=== PATIENT | male | born 1985 | race Caucasian/White ===

== ENCOUNTER 2021-06-14 11:26 | Inpatient (IN) | payer BC ==
--- NOTE | 2021-06-14 12:26 | ERPHSYRPT ---
- History of Present Illness Source: patient Exam Limitations: no limitations Patient Subjective Stated Complaint: spider bite to L forearm since night Triage Nursing Assessment: See skin assessment tab for abcess assessment. Otherwise, pt is A & OX3, answers questions approprately. VSS. Skin PWD. RR even, unlabored. Ambulated to room without difficulty. Resting comfortably in bed. Has blanket and call light. Physician History: 36 yo obese wm w L proximal-ventral forearm erythema/edema which pt states is due to a brown recluse spider that bit him while he was in bed on 06/12/21. He says that he has had some "numbness" and "burning" B hands/feet since the bite, along w a fever/headache. Timing/Duration: day(s) (2 days ago) Quality: burning Severity: moderate Location: other (L ventral-proximal forearm) Possible Causes: other (Brown Recluse spider) Modifying Factors: Improves With: antihistamine (Taking Benadryl) Allergies/Adverse Reactions: lisinopril Adverse Reaction (Intermediate, Verified 06/14/21 11:54) Cough Home Medications: Losartan Potassium 100 mg PO DAILY 06/14/21 [History] Metformin HCl 500 mg [Glucophage 500 MG] 500 mg PO DAILY 06/14/21 [History] PARoxetine HCL [Paroxetine HCl] 20 mg PO DAILY 06/14/21 [History] Simvastatin 10 mg PO DAILY 06/14/21 [History] hydroCHLOROthiazide [Hydrochlorothiazide] 50 mg PO DAILY 06/14/21 [History] Hx Tetanus, Diphtheria Vaccination/Date Given: No Hx Influenza Vaccination/Date Given: No Travel Risk - International Travel Have you traveled outside of the country in past 3 weeks: No - Coronavirus Screening Are you exhibiting any of the following symptoms?: No Close contact with a COVID-19 positive Pt in past 14-21 Days: No - Vaccine Status Have you recieved a Covid-19 vaccination: Yes 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 - Vaccination Dates Date of 2cond Vaccination (if applicable): unknown - Review of Systems Constitutional: No Symptoms, Fever, Chills Eyes: No Symptoms Ears, Nose, & Throat: No Symptoms Respiratory: No Symptoms Cardiac: No Symptoms Abdominal/Gastrointestinal: No Symptoms, Nausea Genitourinary Symptoms: No Symptoms Musculoskeletal: No Symptoms, Arthralgias Skin: No Symptoms, Rash Neurological: No Symptoms, Headache Psychological: No Symptoms Endocrine: No Symptoms Hematologic/Lymphatic: No Symptoms Immunological/Allergic: No Symptoms - Past Medical History Pertinent Past Medical History: Yes Neurological History: No Pertinent History Cardiac History: High Cholesterol, Hypertension Respiratory History: Sleep Apnea Musculoskeletal History: No Pertinent History GI Medical History: No Pertinent History History: No Pertinent History Psycho-Social History: Anxiety Male Reproductive Disorders: No Pertinent History Other Medical History: pre diabetic - Past Surgical History Past Surgical History: Yes Other Surgical History: radio frequency ablation of back - Social History Smoking Status: Former smoker Exposure to second hand smoke: No Drug Use: none Patient Lives Alone: No Significant Family History: no pertinent family hx - Nursing Vital Signs Nursing Vital Signs: Initial Vital Signs Temperature 98.5 F 06/14/21 11:37 Pulse Rate 96 H 06/14/21 11:37 Respiratory Rate 20 06/14/21 11:37 Blood Pressure 116/77 06/14/21 11:37 O2 Sat by Pulse Oximetry 97 06/14/21 11:37 Pain Scale Pain Intensity 3 Slightly tachypneic - Physical Exam General Appearance: no apparent distress Eye Exam: PERRL/EOMI, eyes nml inspection Ears, Nose, Throat Exam: normal ENT inspection, TMs normal, pharynx normal, m oist mucous membranes Neck Exam: normal inspection, non-tender, supple, full range of motion, No meningismus, No mass, No Brudzinski, No Kernig's, No carotid bruit Respiratory Exam: normal breath sounds, lungs clear, airway intact, No respiratory distress Cardiovascular Exam: regular rate/rhythm, normal heart sounds, normal peripheral pulses, capillary refill <2 sec, No murmur Gastrointestinal/Abdomen Exam: soft (Morbidly obese), normal bowel sounds, No tenderness Back Exam: normal inspection, normal range of motion, No CVA tenderness, No vertebral tenderness Extremity Exam: other (Erythema and mild edema L ventral-proximal forearm/No palpable abscess/mildly TTP/Good radial pulse, distal sensation, and capillary return) Neurologic Exam: alert, oriented x 3, cooperative, 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, normal mood/affect, nml cerebellar function, nml station & gait, sensation nml, No motor deficits, No sensory deficit Skin Exam: warm, dry Lymphatic Exam: No adenopathy SpO2 Interpretation: normal SpO2: 97 O2 Delivery: Room Air - Course Nursing assessment & vital signs reviewed: Yes Ordered Tests: Active Orders 24 hr Category Date Time Status IV Insertion STAT Care 06/14/21 11:50 Completed Heart-Healthy Diet Diet 06/14/21 Dinner Active BLOOD CULTURE Stat Lab 06/14/21 12:20 Received CBC W DIFF AM.LAB Lab 06/15/21 04:00 Ordered CBC W DIFF Stat Lab 06/14/21 11:50 Completed CMP AM.LAB Lab 06/15/21 04:00 Ordered CMP Stat Lab 06/14/21 12:15 Completed Lactic Acid AM.LAB Lab 06/15/21 04:00 Ordered Lactic Acid Stat Lab 06/14/21 11:50 Completed Transfer Order Routine Transfer 06/14/21 Completed Medication Summary Generic Name Dose Route Start Last Admin Trade Name Freq PRN Reason Stop Dose Admin Acetaminophen 500 mg 06/14/21 18:51 06/14/21 18:53 Acetaminophen 500 Mg Tablet PO 07/14/21 18:50 500 mg Q6H PRN PRN Administration HEADACHE Enoxaparin Sodium 40 mg 06/15/21 10:00 Enoxaparin Sodium 40 Mg/0.4 Ml Syringe SQ 07/15/21 09:59 DAILY YUAN Vancomycin HCl 1 gm in 200 mls @ 125 mls/hr 06/14/21 14:30 06/14/21 16:03 Vancomycin 1 Gram/200 Ml Bag IV 07/14/21 14:29 Infused Q12H YUAN Infusion Sodium Chloride 1,000 mls @ 100 mls/hr 06/14/21 14:30 06/14/21 18:01 Sodium Chloride 0.9% 1000 Ml IV 07/14/21 14:29 100 mls/hr .Q10H YUAN Administration Insulin Human Lispro 0 unit 06/14/21 14:28 Insulin Lispro 1 Unit SQ 07/14/21 14:27 UD PRN HYPERGLYCEMIA Ondansetron HCl 4 mg 06/14/21 15:56 06/14/21 18:01 Ondansetron Hcl 4 Mg/2 Ml Vial IV 07/14/21 15:55 4 mg Q6H PRN PRN Administration NAUSEA/VOMITING Ondansetron HCl 4 mg 06/14/21 21:05 06/14/21 21:11 Ondansetron Hcl 4 Mg/2 Ml Vial IV 06/14/21 21:06 4 mg ONCE ONE Administration Pantoprazole Sodium 40 mg 06/15/21 10:00 Pantoprazole 40 Mg Vial IV 07/15/21 09:59 Q24H10 YUAN Discontinued Medications Generic Name Dose Route Start Last Admin Trade Name Freq PRN Reason Stop Dose Admin Acetaminophen 1,000 mg 06/14/21 18:45 Acetaminophen 500 Mg Tablet PO 07/14/21 18:44 Q4H PRN PRN HEADACHE Ondansetron HCl Confirm 06/14/21 15:55 Ondansetron Hcl 4 Mg/2 Ml Vial Administered 06/14/21 15:56 Dose 4 mg .ROUTE .STK-MED ONE Ondansetron HCl 4 mg 06/14/21 15:55 06/14/21 15:57 Ondansetron Hcl 4 Mg/2 Ml Vial IV 06/14/21 15:56 4 mg STAT ONE Administration Lab/Rad Data: Laboratory Result Diagrams 06/14/21 11:50 06/14/21 12:15 Laboratory Results 06/14/21 06/14/21 06/14/21 Range/Units 14:45 12:15 11:50 WBC (4.0-10.5) K/mm3 RBC (4.1-5.6) M/mm3 Hgb (12.5-18.0) gm/dl Hct (42-50) % MCV (78-100) fl MCH (26-32) pg MCHC (32-36) g/dl RDW (11.5-14.0) % Plt Count (150-450) K/mm3 MPV (7.5-11.0) fl Gran % (36.0-66.0) % Eos # (Auto) (0-0.5) Absolute Lymphs (auto) (1.0-4.6) Absolute Monos (auto) (0.0-1.3) Lymphocytes % (24.0-44.0) % Monocytes % (0.0-12.0) % Eosinophils % (0.00-5.0) % Basophils % (0.0-0.4) % Absolute Granulocytes (1.4-6.9) Basophils # (0-0.4) Sodium 135 L (137-145) mmol/L Potassium 3.1 L (3.5-5.1) mmol/L Chloride 96 L (98-107) mmol/L Carbon Dioxide 29 (22-30) mmol/L Anion Gap 13.4 (5-15) MEQ/L BUN 14 (9-20) mg/dL Creatinine 1.36 H (0.66-1.25) mg/dL Estimated GFR > 60.0 ML/MIN Glucose 113 H (74-106) mg/dL Lactic Acid 1.6 (0.4-2.0) Calcium 9.1 (8.4-10.2) mg/dL Total Bilirubin 3.50 H (0.2-1.3) mg/dL AST 82 H (17-59) U/L ALT 81 H (0-50) U/L Alkaline Phosphatase 55 (38-126) U/L Serum Total Protein 7.5 (6.3-8.2) g/dL Albumin 4.0 (3.5-5.0) g/dL Influenza Type A Ag NEGATIVE (NEGATIVE) Influenza Type B Ag NEGATIVE (NEGATIVE) RSV (PCR) NEGATIVE (Negative) SARS-CoV-2 (PCR) NEGATIVE (NEGATIVE) Slides for Path Review 06/14/21 Range/Units 11:50 WBC 14.1 H (4.0-10.5) K/mm3 RBC 5.03 (4.1-5.6) M/mm3 Hgb 14.9 (12.5-18.0) gm/dl Hct 43.2 (42-50) % MCV 85.9 (78-100) fl MCH 29.6 (26-32) pg MCHC 34.5 (32-36) g/dl RDW 14.4 H (11.5-14.0) % Plt Count 316 (150-450) K/mm3 MPV 8.7 (7.5-11.0) fl Gran % 88.5 H (36.0-66.0) % Eos # (Auto) 0.67 H (0-0.5) Absolute Lymphs (auto) 0.32 L (1.0-4.6) Absolute Monos (auto) 0.62 (0.0-1.3) Lymphocytes % 2.3 L (24.0-44.0) % Monocytes % 4.4 (0.0-12.0) % Eosinophils % 4.7 (0.00-5.0) % Basophils % 0.1 (0.0-0.4) % Absolute Granulocytes 12.51 H (1.4-6.9) Basophils # 0.02 (0-0.4) Sodium (137-145) mmol/L Potassium (3.5-5.1) mmol/L Chloride (98-107) mmol/L Carbon Dioxide (22-30) mmol/L Anion Gap (5-15) MEQ/L BUN (9-20) mg/dL Creatinine (0.66-1.25) mg/dL Estimated GFR ML/MIN Glucose (74-106) mg/dL Lactic Acid (0.4-2.0) Calcium (8.4-10.2) mg/dL Total Bilirubin (0.2-1.3) mg/dL AST (17-59) U/L ALT (0-50) U/L Alkaline Phosphatase (38-126) U/L Serum Total Protein (6.3-8.2) g/dL Albumin (3.5-5.0) g/dL Influenza Type A Ag (NEGATIVE) Influenza Type B Ag (NEGATIVE) RSV (PCR) (Negative) SARS-CoV-2 (PCR) (NEGATIVE) Slides for Path Review YES Transaminitis - Progress Progress Note: 06/14/21 14:[address] Ye Blood cultures x2 1gm IV Vanc Counseled pt/family regarding: lab results, diagnosis - Departure Departure Disposition: Observation Clinical Impression: Spider bite Cellulitis Qualifiers: Site of cellulitis: extremity Site of cellulitis of extremity: upper extremity Laterality: left Qualified Code(s): L03.114 - Cellulitis of left upper limb Condition: Stable Critical Care Time: No
[2021-06-14 12:44] LABS: Absolute Neutrophil Ct (ANC) 12.51 (1.4-6.9); Basophil (Absolute #) 0.02 (0-0.4); Eosinophil % 4.7 % (0.00-5.0); Eosinophil (Absolute #) 0.67 (0-0.5); Hematocrit 43.2 % (42-50); Hemoglobin 14.9 gm/dl (12.5-18.0); Lymphocyte (Absolute #) 0.32 (1.0-4.6); Lymphocytes % 2.3 % (24.0-44.0); Mean Cell Volume 85.9 fl (78-100); Mean Corpuscular Hemoglobin 29.6 pg (26-32); Mean Corpuscular Hgb Concent. 34.5 g/dl (32-36); Mean Platelet Volume 8.7 fl (7.5-11.0); Monocyte (Absolute #) 0.62 (0.0-1.3); Monocytes % 4.4 % (0.0-12.0); Neutrophil % 88.5 % (36.0-66.0); Platelet Count 316 K/mm3 (150-450); Red Blood Count 5.03 M/mm3 (4.1-5.6); Red Cell Distribution Width 14.4 % (11.5-14.0); White Blood Count 14.1 K/mm3 (4.0-10.5)
[2021-06-14 12:50] LABS: ALKALINE PHOSPHATASE 55 U/L (38-126); ANION GAP 13.4 MEQ/L (5-15); BLOOD UREA NITROGEN 14 mg/dL (9-20); CHLORIDE 96 mmol/L (98-107); Calcium 9.1 mg/dL (8.4-10.2); Carbon Dioxide 29 mmol/L (22-30); Creatinine 1 1.36 mg/dL (0.66-1.25); EST GLOMERULAR FILTRATION RATE > 60.0 ML/MIN; Glucose 113 mg/dL (74-106); Potassium 3.1 mmol/L (3.5-5.1); SGOT/AST 82 U/L (17-59); SGPT/ALT 81 U/L (0-50); SODIUM 135 mmol/L (137-145); Total Protein 7.5 g/dL (6.3-8.2)
[2021-06-14 14:13] LABS: Slide Review 1 YES
[2021-06-14] MEDS: VANCOMYCIN 1 GRAM/200 ML BAG 1 GM/200 ML PIGGYBACK IV SCH (14:27)
[2021-06-14 15:19] LABS: INFLUENZA A NEGATIVE (NEGATIVE); INFLUENZA B NEGATIVE (NEGATIVE); RESPIRATORY SYNCTIAL VIRUS NEGATIVE (Negative); SARS-CoV-2 Xpert Express NEGATIVE (NEGATIVE)
[2021-06-14] MEDS ORDERED: Zofran 4 MG/2 ML VIAL ONE (15:55)
[2021-06-14] MEDS ORDERED: Zofran 4 MG/2 ML VIAL IV ONE ×2 (15:55→21:05)
[2021-06-14] MEDS: Zofran 4 MG/2 ML VIAL IV PRN (18:01)
[2021-06-14] MEDS: Sodium Chloride 0.9% 1000 ML 1,000 ML IV SCH (18:01)
[2021-06-14] MEDS ORDERED: TYLENOL EXTRA STRENGTH 500 MG PO PRN (18:45)
[2021-06-14] MEDS: TYLENOL EXTRA STRENGTH 500 MG PO PRN (18:53)
--- NOTE | 2021-06-14 20:41 | PCM.HP ---
History of Present Illness - Chief Complaint Chief Complaint: left forearm swelling for 1 day History of Present Illness: is a 36 year old male.came to ER c/o proximal-ventral forearm erythema/edema which pt states is due to a brown recluse spider that bit him while he was in bed on 06/12/21. He says that he has had some "numbness" and "burning" B hands/feet since the bite, along w a fever/headache. Timing/Duration: day(s) (2 days ago) Quality: burning Severity: moderate Location: other (L ventral-proximal forearm) Possible Causes: other (Brown Recluse spider) Modifying Factors: Improves With: antihistamine (Taking Benadryl) - Review of Systems Constitutional: No Fever, No Chills Eyes: No Symptoms Ears, Nose, & Throat: No Symptoms Respiratory: No Cough, No Short Of Breath Cardiac: No Chest Pain, No Edema, No Syncope Abdominal/Gastrointestinal: No Abdominal Pain, No Nausea, No Vomiting, No Diarrhea Genitourinary Symptoms: No Dysuria Musculoskeletal: No Back Pain, No Neck Pain Skin: Cellulitis, Induration, No Rash Neurological: No Dizziness, No Focal Weakness, No Sensory Changes Psychological: No Symptoms Endocrine: No Symptoms Hematologic/Lymphatic: No Symptoms Immunological/Allergic: No Symptoms Medications & Allergies Home Medications: Home Medication List Losartan Potassium 100 mg PO DAILY 06/14/21 [History Confirmed 06/14/21] Metformin HCl 500 mg [Glucophage 500 MG] 500 mg PO DAILY 06/14/21 [History Confirmed 06/14/21] PARoxetine HCL [Paroxetine HCl] 20 mg PO DAILY 06/14/21 [History Confirmed 06/14/21] Simvastatin 10 mg PO DAILY 06/14/21 [History Confirmed 06/14/21] hydroCHLOROthiazide [Hydrochlorothiazide] 50 mg PO DAILY 06/14/21 [History Confirmed 06/14/21] Allergies/Adverse Reactions: Allergies Allergy/AdvReac Type Severity Reaction Status Date / Time lisinopril AdvReac Intermediate Cough Verified 06/14/21 11:54 - Past Medical History Past Medical History: Yes Neurological History: No Pertinent History ENT History: No Pertinent History Cardiac History: High Cholesterol, Hypertension Respiratory History: Sleep Apnea Endocrine Medical History: Diabetes Type II Musculoskelatal History: No Pertinent History GI Medical History: No Pertinent History History: No Pertinent History Pyscho-Social History: Anxiety Male Reproductive Disorders: No Pertinent History Comment: pre diabetic - Past Surgical History Past Surgical History: Yes Neuro Surgical History: No Pertinent History Cardiac History: No Pertinent History Respiratory Surgery: No Pertinent History GI Surgical History: No Pertinent History Genitourinary Surgical Hx: No Pertinent History Musculskeletal Surgical Hx: Orthopedic Surgery Male Surgical History: No Pertinent History Other Surgical History: radio frequency ablation of back - Social History Smoking Status: Former smoker Exposure to second hand smoke: No Alcohol: Rarely Drug Use: none Significant Family History: no pertinent family hx - Physical Exam Vital Signs: Vital Signs - 24 hr Temp Pulse Resp BP Pulse Ox 06/14/21 20:00 97.7 F 118 H 28 H 119/60 95 06/14/21 16:44 98.6 F 126 H 20 129/66 98 06/14/21 16:12 98.6 F 126 H 26 H 129/66 98 06/14/21 14:32 97 06/14/21 11:37 98.5 F 96 H 20 116/77 97 General Appearance: no apparent distress, alert Neurologic Exam: alert, oriented x 3, cooperative, normal mood/affect, nml cerebellar function, nml station & gait, sensation nml, No motor deficits Eye Exam: PERRL/EOMI, eyes nml inspection Ears, Nose, Throat Exam: normal ENT inspection, TMs normal, pharynx normal, moist mucous membranes Neck Exam: normal inspection, non-tender, supple, full range of motion Respiratory Exam: normal breath sounds, lungs clear, No respiratory distress Cardiovascular Exam: regular rate/rhythm, normal heart sounds, normal peripheral pulses Gastrointestinal/Abdomen Exam: soft, normal bowel sounds, No tenderness, No mass Back Exam: normal inspection, normal range of motion, No CVA tenderness, No vertebral tenderness Extremity Exam: normal inspection, normal range of motion, pelvis stable, inflammation, swelling (fprearm) Skin Exam: normal color, warm, dry, No rash Lymphatic Exam: No adenopathy Results - Labs Lab/Micro Results: Lab Results-Last 24 Hours 06/14/21 06/14/21 06/14/21 Range/Units 11:50 11:50 12:15 WBC 14.1 H (4.0-10.5) K/mm3 RBC 5.03 (4.1-5.6) M/mm3 Hgb 14.9 (12.5-18.0) gm/dl Hct 43.2 (42-50) % MCV 85.9 (78-100) fl MCH 29.6 (26-32) pg MCHC 34.5 (32-36) g/dl RDW 14.4 H (11.5-14.0) % Plt Count 316 (150-450) K/mm3 MPV 8.7 (7.5-11.0) fl Gran % 88.5 H (36.0-66.0) % Eos # (Auto) 0.67 H (0-0.5) Absolute Lymphs (auto) 0.32 L (1.0-4.6) Absolute Monos (auto) 0.62 (0.0-1.3) Lymphocytes % 2.3 L (24.0-44.0) % Monocytes % 4.4 (0.0-12.0) % Eosinophils % 4.7 (0.00-5.0) % Basophils % 0.1 (0.0-0.4) % Absolute Granulocytes 12.51 H (1.4-6.9) Basophils # 0.02 (0-0.4) Sodium 135 L (137-145) mmol/L Potassium 3.1 L (3.5-5.1) mmol/L Chloride 96 L (98-107) mmol/L Carbon Dioxide 29 (22-30) mmol/L Anion Gap 13.4 (5-15) MEQ/L BUN 14 (9-20) mg/dL Creatinine 1.36 H (0.66-1.25) mg/dL Estimated GFR > 60.0 ML/MIN Glucose 113 H (74-106) mg/dL Lactic Acid 1.6 (0.4-2.0) Calcium 9.1 (8.4-10.2) mg/dL Total Bilirubin 3.50 H (0.2-1.3) mg/dL AST 82 H (17-59) U/L ALT 81 H (0-50) U/L Alkaline Phosphatase 55 (38-126) U/L Serum Total Protein 7.5 (6.3-8.2) g/dL Albumin 4.0 (3.5-5.0) g/dL Influenza Type A Ag (NEGATIVE) Influenza Type B Ag (NEGATIVE) RSV (PCR) (Negative) SARS-CoV-2 (PCR) (NEGATIVE) Slides for Path Review YES 06/14/21 Range/Units 14:45 WBC (4.0-10.5) K/mm3 RBC (4.1-5.6) M/mm3 Hgb (12.5-18.0) gm/dl Hct (42-50) % MCV (78-100) fl MCH (26-32) pg MCHC (32-36) g/dl RDW (11.5-14.0) % Plt Count (150-450) K/mm3 MPV (7.5-11.0) fl Gran % (36.0-66.0) % Eos # (Auto) (0-0.5) Absolute Lymphs (auto) (1.0-4.6) Absolute Monos (auto) (0.0-1.3) Lymphocytes % (24.0-44.0) % Monocytes % (0.0-12.0) % Eosinophils % (0.00-5.0) % Basophils % (0.0-0.4) % Absolute Granulocytes (1.4-6.9) Basophils # (0-0.4) Sodium (137-145) mmol/L Potassium (3.5-5.1) mmol/L Chloride (98-107) mmol/L Carbon Dioxide (22-30) mmol/L Anion Gap (5-15) MEQ/L BUN (9-20) mg/dL Creatinine (0.66-1.25) mg/dL Estimated GFR ML/MIN Glucose (74-106) mg/dL Lactic Acid (0.4-2.0) Calcium (8.4-10.2) mg/dL Total Bilirubin (0.2-1.3) mg/dL AST (17-59) U/L ALT (0-50) U/L Alkaline Phosphatase (38-126) U/L Serum Total Protein (6.3-8.2) g/dL Albumin (3.5-5.0) g/dL Influenza Type A Ag NEGATIVE (NEGATIVE) Influenza Type B Ag NEGATIVE (NEGATIVE) RSV (PCR) NEGATIVE (Negative) SARS-CoV-2 (PCR) NEGATIVE (NEGATIVE) Slides for Path Review Assessment/Plan (1) Cellulitis Current Visit: Yes Status: Acute Qualifiers: Site of cellulitis: extremity Site of cellulitis of extremity: upper extremity Laterality: left Qualified Code(s): L03.114 - Cellulitis of left upper limb Assessment & Plan: Chief Complaint Diagnosis cellulitis Allergies Allergy/AdvReac Type Severity Reaction Status Date / Time lisinopril AdvReac Intermediate Cough Verified 06/14/21 11:54 Vital Signs (Last 24 hours) Temp Pulse Resp BP Pulse Ox 06/14/21 20:00 97.7 F 118 H 28 H 119/60 95 06/14/21 16:44 98.6 F 126 H 20 129/66 98 06/14/21 16:12 98.6 F 126 H 26 H 129/66 98 06/14/21 14:32 97 06/14/21 11:37 98.5 F 96 H 20 116/77 97 Home Medications Medication Instructions Recorded Confirmed Last Taken Type Losartan Potassium 100 mg PO DAILY 06/14/21 06/14/21 Unknown History Metformin HCl 500 mg 500 mg PO DAILY 06/14/21 06/14/21 06/13/21 History [Glucophage 500 MG] PARoxetine HCL [Paroxetine HCl] 20 mg PO DAILY 06/14/21 06/14/21 Unknown History Simvastatin 10 mg PO DAILY 06/14/21 06/14/21 Unknown History hydroCHLOROthiazide 50 mg PO DAILY 06/14/21 06/14/21 Unknown History [Hydrochlorothiazide] Current Medications Generic Name Dose Route Start Last Admin Trade Name Freq PRN Reason Stop Dose Admin Acetaminophen 500 mg 06/14/21 18:51 06/14/21 18:53 Acetaminophen 500 Mg Tablet PO 07/14/21 18:50 500 mg Q6H PRN PRN Administration HEADACHE Enoxaparin Sodium 40 mg 06/15/21 10:00 Enoxaparin Sodium 40 Mg/0.4 Ml Syringe SQ 07/15/21 09:59 DAILY YUAN Vancomycin HCl 1 gm in 200 mls @ 125 mls/hr 06/14/21 14:30 06/14/21 16:03 Vancomycin 1 Gram/200 Ml Bag IV 07/14/21 14:29 Infused Q12H YUAN Infusion Sodium Chloride 1,000 mls @ 100 mls/hr 06/14/21 14:30 06/14/21 18:01 Sodium Chloride 0.9% 1000 Ml IV 07/14/21 14:29 100 mls/hr .Q10H YUAN Administration Insulin Human Lispro 0 unit 06/14/21 14:28 Insulin Lispro 1 Unit SQ 07/14/21 14:27 UD PRN HYPERGLYCEMIA Ondansetron HCl 4 mg 06/14/21 15:56 06/14/21 18:01 Ondansetron Hcl 4 Mg/2 Ml Vial IV 07/14/21 15:55 4 mg Q6H PRN PRN Administration NAUSEA/VOMITING Pantoprazole Sodium 40 mg 06/15/21 10:00 Pantoprazole 40 Mg Vial IV 07/15/21 09:59 Q24H10 YUAN Discontinued Medications Generic Name Dose Route Start Last Admin Trade Name Freq PRN Reason Stop Dose Admin Acetaminophen 1,000 mg 06/14/21 18:45 Acetaminophen 500 Mg Tablet PO 07/14/21 18:44 Q4H PRN PRN HEADACHE Ondansetron HCl Confirm 06/14/21 15:55 Ondansetron Hcl 4 Mg/2 Ml Vial Administered 06/14/21 15:56 Dose 4 mg .ROUTE .STK-MED ONE Ondansetron HCl 4 mg 06/14/21 15:55 06/14/21 15:57 Ondansetron Hcl 4 Mg/2 Ml Vial IV 06/14/21 15:56 4 mg STAT ONE Administration Intake & Output (Last 24 hours) 06/12/21 06/13/21 06/14/21 06/15/21 11:59 11:59 11:59 11:59 Intake Total 320 Output Total 700 Balance -380 Weight 206.385 kg 202.3 kg Microbiology Results (Last 24 hours) 06/14/21 12:20 Blood Blood Culture Gram Stain - Pending 06/14/21 12:20 Blood Blood Culture - Pending 06/14/21 12:05 Blood Blood Culture Gram Stain - Pending 06/14/21 12:05 Blood Blood Culture - Pending Laboratory Results (Last 24 hours) 06/14/21 06/14/21 06/14/21 14:45 12:15 11:50 WBC RBC Hgb Hct MCV MCH MCHC RDW Plt Count MPV Gran % Eos # (Auto) Absolute Lymphs (auto) Absolute Monos (auto) Lymphocytes % Monocytes % Eosinophils % Basophils % Absolute Granulocytes Basophils # Sodium 135 L Potassium 3.1 L Chloride 96 L Carbon Dioxide 29 Anion Gap 13.4 BUN 14 Creatinine 1.36 H Estimated GFR > 60.0 Glucose 113 H Lactic Acid 1.6 Calcium 9.1 Total Bilirubin 3.50 H AST 82 H ALT 81 H Alkaline Phosphatase 55 Serum Total Protein 7.5 Albumin 4.0 Influenza Type A Ag NEGATIVE Influenza Type B Ag NEGATIVE RSV (PCR) NEGATIVE SARS-CoV-2 (PCR) NEGATIVE Slides for Path Review 06/14/21 11:50 WBC 14.1 H RBC 5.03 Hgb 14.9 Hct 43.2 MCV 85.9 MCH 29.6 MCHC 34.5 RDW 14.4 H Plt Count 316 MPV 8.7 Gran % 88.5 H Eos # (Auto) 0.67 H Absolute Lymphs (auto) 0.32 L Absolute Monos (auto) 0.62 Lymphocytes % 2.3 L Monocytes % 4.4 Eosinophils % 4.7 Basophils % 0.1 Absolute Granulocytes 12.51 H Basophils # 0.02 Sodium Potassium Chloride Carbon Dioxide Anion Gap BUN Creatinine Estimated GFR Glucose Lactic Acid Calcium Total Bilirubin AST ALT Alkaline Phosphatase Serum Total Protein Albumin Influenza Type A Ag Influenza Type B Ag RSV (PCR) SARS-CoV-2 (PCR) Slides for Path Review YES Orders (Last 24 hours) Category Date Time Status Bedrest with BRP/BSC ROUTINE Activity 06/14/21 14:29 Active Code Status Order ROUTINE Care 06/14/21 14:28 Active IV Insertion STAT Care 06/14/21 11:50 Completed POCT Glucose Check ACHS Care 06/14/21 19:[address] in Observation ROUTINE Care 06/14/21 14:28 Active Heart-Healthy Diet Diet 06/14/21 Dinner Active BLOOD CULTURE Stat Lab 06/14/21 12:20 Received CBC W DIFF AM.LAB Lab 06/15/21 04:00 Ordered CBC W DIFF Stat Lab 06/14/21 11:50 Completed CMP AM.LAB Lab 06/15/21 04:00 Ordered CMP Stat Lab 06/14/21 12:15 Completed Lactic Acid AM.LAB Lab 06/15/21 04:00 Ordered Lactic Acid Stat Lab 06/14/21 11:50 Completed Acetaminophen 500 mg [Tylenol Extra Strength 500 mg* Med 06/14/21 18:45 Discontinued ] 1,000 mg PO Q4H PRN PRN Acetaminophen 500 mg [Tylenol Extra Strength 500 mg* Med 06/14/21 18:51 Ordered ] 500 mg PO Q6H PRN PRN Enoxaparin Sodium [Enoxaparin Sodium] Med 06/15/21 10:00 Ordered 40 mg SQ DAILY Insulin Lispro [Humalog] Med 06/14/21 14:28 Ordered See Dose Instructions SQ UD PRN NaCl 0.9% 1000 ml [Sodium Chloride 0.9% 1000 ML] 1,000 Med 06/14/21 14:30 Ordered ml IV 100 mls/hr Ondansetron HCl 4 mg/2 ml [Zofran 4 MG/2 ML VIAL] Med 06/14/21 15:55 Discontinued 4 mg .ROUTE .STK-MED ONE Ondansetron HCl 4 mg/2 ml [Zofran 4 MG/2 ML VIAL] Med 06/14/21 15:56 O rdered 4 mg IV Q6H PRN PRN Ondansetron HCl 4 mg/2 ml [Zofran 4 MG/2 ML VIAL] Med 06/14/21 15:55 Discontinued 4 mg IV STAT ONE Pantoprazole 40 mg [Protonix 40 mg IV] Med 06/15/21 10:00 Ordered 40 mg IV Q24H10 Vancomycin/Water For Inj (Peg) [Vancomycin 1 Gram/200 Med 06/14/21 14:30 Ordered ml Bag] 1 gm in 200 ml IV Q12H Transfer Order Routine Transfer 06/14/21 Completed Code(s): L03.90 - CELLULITIS, UNSPECIFIED (2) Spider bite Current Visit: Yes Status: Acute Code(s): T63.301A - TOXIC EFFECT OF UNSP SPIDER VENOM, ACCIDENTAL, INIT
[2021-06-15] MEDS ORDERED: Sodium Chloride 0.9% 1000 ML 1,000 ML ONE (03:11)
[2021-06-15] MEDS ORDERED: VANCOMYCIN 1 GRAM/200 ML BAG 1 GM/200 ML PIGGYBACK IV ONE (03:11)
[2021-06-15] MEDS: VANCOMYCIN 1 GRAM/200 ML BAG 1 GM/200 ML PIGGYBACK IV SCH (03:13)
[2021-06-15] MEDS: Sodium Chloride 0.9% 1000 ML 1,000 ML IV SCH ×2 (03:13→11:43)
[2021-06-15] MEDS: Zofran 4 MG/2 ML VIAL IV PRN ×4 (03:14→20:56)
[2021-06-15] MEDS: TYLENOL EXTRA STRENGTH 500 MG PO PRN ×4 (03:24→23:30)
[2021-06-15 05:40] LABS: Absolute Neutrophil Ct (ANC) 10.96 (1.4-6.9); Basophil (Absolute #) 0.03 (0-0.4); Eosinophil % 6.1 % (0.00-5.0); Eosinophil (Absolute #) 0.82 (0-0.5); Hematocrit 38.2 % (42-50); Hemoglobin 13.3 gm/dl (12.5-18.0); Lymphocyte (Absolute #) 0.92 (1.0-4.6); Lymphocytes % 6.9 % (24.0-44.0); Mean Corpuscular Hgb Concent. 34.8 g/dl (32-36); Monocytes % 5.2 % (0.0-12.0); Neutrophil % 81.6 % (36.0-66.0); Platelet Count 282 K/mm3 (150-450); Red Blood Count 4.44 M/mm3 (4.1-5.6); Red Cell Distribution Width 14.2 % (11.5-14.0); White Blood Count 13.4 K/mm3 (4.0-10.5)
[2021-06-15 05:53] LABS: ALBUMIN 3.2 g/dL (3.5-5.0); ALKALINE PHOSPHATASE 60 U/L (38-126); ANION GAP 11.2 MEQ/L (5-15); BLOOD UREA NITROGEN 10 mg/dL (9-20); CHLORIDE 98 mmol/L (98-107); Calcium 8.5 mg/dL (8.4-10.2); Carbon Dioxide 25 mmol/L (22-30); Creatinine 1 1.02 mg/dL (0.66-1.25); EST GLOMERULAR FILTRATION RATE > 60.0 ML/MIN; Glucose 125 mg/dL (74-106); SGOT/AST 66 U/L (17-59); SGPT/ALT 72 U/L (0-50); SODIUM 132 mmol/L (137-145); Total Protein 6.5 g/dL (6.3-8.2)
[2021-06-15 06:05] LABS: Potassium 2.9 mmol/L (3.5-5.1)
[2021-06-15] MEDS: POTASSIUM CHLORIDE 20 mEq IN WATER 100ML 20 MEQ/100 ML BAG IV SCH ×2 (06:24→09:08)
--- NOTE | 2021-06-15 08:37 | PCM.NOTE ---
Date and Time: 06/15/21 08 Subjective Assessment: doing little better. K is low - Review of Systems Constitutional: No Fever, No Chills Eyes: No Symptoms Ears, Nose, & Throat: No Symptoms Respiratory: No Cough, No Short Of Breath Cardiac: No Chest Pain, No Edema, No Syncope Abdominal/Gastrointestinal: No Abdominal Pain, No Nausea, No Vomiting, No Diarrhea Genitourinary Symptoms: No Dysuria Musculoskeletal: No Back Pain, No Neck Pain Skin: No Rash Neurological: No Dizziness, No Focal Weakness, No Sensory Changes Psychological: No Symptoms Endocrine: No Symptoms Hematologic/Lymphatic: No Symptoms Immunological/Allergic: No Symptoms Objective Exam General Appearance: no apparent distress, alert Neurologic Exam: alert, oriented x 3, cooperative, normal mood/affect, nml cerebellar function, sensation nml, No motor deficits Skin Exam: normal color, warm, dry Wound Assessment: Skin/Wound Assessment Wound/Incision Assessment Start: 06/14/21 16:13 Text: Status: Active Freq: Q6H Protocol: Document 06/15/21 07:55 ALPHONSO (Rec: 06/15/21 07:56 ALPHONSO [id number]) Wound/Incision Assessment Left Lower Arm Wound Type Spider Bite/ Abscess Drainage Amount None Surrounding Tissue Bright Red Comment surrounding redness marked by previous shift Eye Exam: PERRL, EOMI, eyes nml inspection Ears, Nose, Throat Exam: normal ENT inspection, pharynx normal, moist mucous membranes Neck Exam: normal inspection, non-tender, supple, full range of motion Respiratory Exam: normal breath sounds, lungs clear, No respiratory distress Cardiovascular Exam: regular rate/rhythm, normal heart sounds Gastrointestinal/Abdomen Exam: soft, No tenderness, No mass Extremity Exam: normal inspection, normal range of motion Back Exam: normal inspection, normal range of motion, No CVA tenderness, No vertebral tenderness Male Genitalia Exam: deferred Rectal Exam: deferred OBJECTIVE DATA Vital Signs: Vital Signs - 24 hr Temp Pulse Resp BP Pulse Ox 06/15/21 08:00 97.3 F 84 20 123/58 96 06/15/21 04:00 98.0 F 98 H 20 125/54 98 06/15/21 00:00 97.7 F 96 H 20 125/65 97 06/14/21 22:43 97 06/14/21 20:00 97.7 F 118 H 28 H 119/60 95 06/14/21 16:44 98.6 F 126 H 20 129/66 98 06/14/21 16:12 98.6 F 126 H 26 H 129/66 98 06/14/21 11:37 98.5 F 96 H 20 116/77 97 Pain Assessment - Last Documented Pain Intensity 8 Pain Scale Used [facility] Intake and Output: Intake & Output 06/12/21 06/13/21 06/14/21 06/15/21 11:59 11:59 11:59 11:59 Intake Total 800 Output Total 1900 Balance -1100 Weight 206.385 kg 202.3 kg Lab Results: Lab Results-Last 24 Hours 06/14/21 06/14/21 06/14/21 Range/Units 11:50 11:50 12:15 WBC 14.1 H (4.0-10.5) K/mm3 RBC 5.03 (4.1-5.6) M/mm3 Hgb 14.9 (12.5-18.0) gm/dl Hct 43.2 (42-50) % MCV 85.9 (78-100) fl MCH 29.6 (26-32) pg MCHC 34.5 (32-36) g/dl RDW 14.4 H (11.5-14.0) % Plt Count 316 (150-450) K/mm3 MPV 8.7 (7.5-11.0) fl Gran % 88.5 H (36.0-66.0) % Eos # (Auto) 0.67 H (0-0.5) Absolute Lymphs (auto) 0.32 L (1.0-4.6) Absolute Monos (auto) 0.62 (0.0-1.3) Lymphocytes % 2.3 L (24.0-44.0) % Monocytes % 4.4 (0.0-12.0) % Eosinophils % 4.7 (0.00-5.0) % Basophils % 0.1 (0.0-0.4) % Absolute Granulocytes 12.51 H (1.4-6.9) Basophils # 0.02 (0-0.4) Sodium 135 L (137-145) mmol/L Potassium 3.1 L (3.5-5.1) mmol/L Chloride 96 L (98-107) mmol/L Carbon Dioxide 29 (22-30) mmol/L Anion Gap 13.4 (5-15) MEQ/L BUN 14 (9-20) mg/dL Creatinine 1.36 H (0.66-1.25) mg/dL Estimated GFR > 60.0 ML/MIN Glucose 113 H (74-106) mg/dL POC Glucometer (74 to 106) mg/dL Lactic Acid 1.6 (0.4-2.0) Calcium 9.1 (8.4-10.2) mg/dL Total Bilirubin 3.50 H (0.2-1.3) mg/dL AST 82 H (17-59) U/L ALT 81 H (0-50) U/L Alkaline Phosphatase 55 (38-126) U/L Serum Total Protein 7.5 (6.3-8.2) g/dL Albumin 4.0 (3.5-5.0) g/dL Influenza Type A Ag (NEGATIVE) Influenza Type B Ag (NEGATIVE) RSV (PCR) (Negative) SARS-CoV-2 (PCR) (NEGATIVE) Slides for Path Review YES 06/14/21 06/14/21 06/14/21 Range/Units 14:45 20:42 20:50 WBC (4.0-10.5) K/mm3 RBC (4.1-5.6) M/mm3 Hgb (12.5-18.0) gm/dl Hct (42-50) % MCV (78-100) fl MCH (26-32) pg MCHC (32-36) g/dl RDW (11.5-14.0) % Plt Count (150-450) K/mm3 MPV (7.5-11.0) fl Gran % (36.0-66.0) % Eos # (Auto) (0-0.5) Absolute Lymphs (auto) (1.0-4.6) Absolute Monos (auto) (0.0-1.3) Lymphocytes % (24.0-44.0) % Monocytes % (0.0-12.0) % Eosinophils % (0.00-5.0) % Basophils % (0.0-0.4) % Absolute Granulocytes (1.4-6.9) Basophils # (0-0.4) Sodium (137-145) mmol/L Potassium (3.5-5.1) mmol/L Chloride (98-107) mmol/L Carbon Dioxide (22-30) mmol/L Anion Gap (5-15) MEQ/L BUN (9-20) mg/dL Creatinine (0.66-1.25) mg/dL Estimated GFR ML/MIN Glucose (74-106) mg/dL POC Glucometer 139 H 119 H (74 to 106) mg/dL Lactic Acid (0.4-2.0) Calcium (8.4-10.2) mg/dL Total Bilirubin (0.2-1.3) mg/dL AST (17-59) U/L ALT (0-50) U/L Alkaline Phosphatase (38-126) U/L Serum Total Protein (6.3-8.2) g/dL Albumin (3.5-5.0) g/dL Influenza Type A Ag NEGATIVE (NEGATIVE) Influenza Type B Ag NEGATIVE (NEGATIVE) RSV (PCR) NEGATIVE (Negative) SARS-CoV-2 (PCR) NEGATIVE (NEGATIVE) Slides for Path Review 06/15/21 06/15/21 06/15/21 Range/Units 05:10 05:20 05:24 WBC 13.4 H (4.0-10.5) K/mm3 RBC 4.44 (4.1-5.6) M/mm3 Hgb 13.3 (12.5-18.0) gm/dl Hct 38.2 L (42-50) % MCV 86.0 (78-100) fl MCH 30.0 (26-32) pg MCHC 34.8 (32-36) g/dl RDW 14.2 H (11.5-14.0) % Plt Count 282 (150-450) K/mm3 MPV 9.0 (7.5-11.0) fl Gran % 81.6 H (36.0-66.0) % Eos # (Auto) 0.82 H (0-0.5) Absolute Lymphs (auto) 0.92 L (1.0-4.6) Absolute Monos (auto) 0.70 (0.0-1.3) Lymphocytes % 6.9 L (24.0-44.0) % Monocytes % 5.2 (0.0-12.0) % Eosinophils % 6.1 H (0.00-5.0) % Basophils % 0.2 (0.0-0.4) % Absolute Granulocytes 10.96 H (1.4-6.9) Basophils # 0.03 (0-0.4) Sodium 132 L (137-145) mmol/L Potassium 2.9 L* (3.5-5.1) mmol/L Chloride 98 (98-107) mmol/L Carbon Dioxide 25 (22-30) mmol/L Anion Gap 11.2 (5-15) MEQ/L BUN 10 (9-20) mg/dL Creatinine 1.02 (0.66-1.25) mg/dL Estimated GFR > 60.0 ML/MIN Glucose 125 H (74-106) mg/dL POC Glucometer (74 to 106) mg/dL Lactic Acid 1.2 (0.4-2.0) Calcium 8.5 (8.4-10.2) mg/dL Total Bilirubin 3.00 H (0.2-1.3) mg/dL AST 66 H (17-59) U/L ALT 72 H (0-50) U/L Alkaline Phosphatase 60 (38-126) U/L Serum Total Protein 6.5 (6.3-8.2) g/dL Albumin 3.2 L (3.5-5.0) g/dL Influenza Type A Ag (NEGATIVE) Influenza Type B Ag (NEGATIVE) RSV (PCR) (Negative) SARS-CoV-2 (PCR) (NEGATIVE) Slides for Path Review 06/15/21 Range/Units 07:01 WBC (4.0-10.5) K/mm3 RBC (4.1-5.6) M/mm3 Hgb (12.5-18.0) gm/dl Hct (42-50) % MCV (78-100) fl MCH (26-32) pg MCHC (32-36) g/dl RDW (11.5-14.0) % Plt Count (150-450) K/mm3 MPV (7.5-11.0) fl Gran % (36.0-66.0) % Eos # (Auto) (0-0.5) Absolute Lymphs (auto) (1.0-4.6) Absolute Monos (auto) (0.0-1.3) Lymphocytes % (24.0-44.0) % Monocytes % (0.0-12.0) % Eosinophils % (0.00-5.0) % Basophils % (0.0-0.4) % Absolute Granulocytes (1.4-6.9) Basophils # (0-0.4) Sodium (137-145) mmol/L Potassium (3.5-5.1) mmol/L Chloride (98-107) mmol/L Carbon Dioxide (22-30) mmol/L Anion Gap (5-15) MEQ/L BUN (9-20) mg/dL Creatinine (0.66-1.25) mg/dL Estimated GFR ML/MIN Glucose (74-106) mg/dL POC Glucometer 113 H (74 to 106) mg/dL Lactic Acid (0.4-2.0) Calcium (8.4-10.2) mg/dL Total Bilirubin (0.2-1.3) mg/dL AST (17-59) U/L ALT (0-50) U/L Alkaline Phosphatase (38-126) U/L Serum Total Protein (6.3-8.2) g/dL Albumin (3.5-5.0) g/dL Influenza Type A Ag (NEGATIVE) Influenza Type B Ag (NEGATIVE) RSV (PCR) (Negative) SARS-CoV-2 (PCR) (NEGATIVE) Slides for Path Review Assessment/Plan (1) Cellulitis Current Visit: Yes Status: Acute Qualifiers: Site of cellulitis: extremity Site of cellulitis of extremity: upper extremity Laterality: left Qualified Code(s): L03.114 - Cellulitis of left upper limb Code(s): L03.90 - CELLULITIS, UNSPECIFIED (2) Spider bite Current Visit: Yes Status: Acute Qualifiers: Encounter type: initial encounter Injury intent: accidental or unintentional Qualified Code(s): T63.301A - Toxic effect of unspecified spider venom, accidental (unintentional), initial encounter Code(s): T63.301A - TOXIC EFFECT OF UNSP SPIDER VENOM, ACCIDENTAL, INIT
[2021-06-15] MEDS: Glucophage 500 MG PO SCH (09:07)
[2021-06-15] MEDS: Cozaar 50 MG PO SCH (09:08)
[2021-06-15] MEDS: hydroDIURIL 25 MG PO SCH (09:09)
[2021-06-15] MEDS: Zocor 10MG PO SCH (09:09)
[2021-06-15] MEDS: Paxil 20 MG PO SCH (09:09)
[2021-06-15] MEDS: ENOXAPARIN SODIUM SQ SCH (09:10)
[2021-06-15] MEDS: PROTONIX 40 MG IV IV SCH (09:10)
[2021-06-15] MEDS ORDERED: NON-FORMULARY ITEM (Hydrochlorothiazide [Hydrochlorothiazide] 50 MG Tablet) PO SCH (10:00)
[2021-06-15] MEDS ORDERED: NON-FORMULARY ITEM (Losartan Potassium [Losartan Potassium] 100 MG Tablet) PO SCH (10:00)
[2021-06-15] MEDS ORDERED: Klor Con 10 MEQ PO ONE (11:42)
[2021-06-15] MEDS ORDERED: VANCOMYCIN 1.5 GRAM/300 ML BAG 1.5 GM/300 ML PIGGYBACK IV SCH (12:00)
[2021-06-15] MEDS: Nicoderm CQ 21 MG TOP SCH (12:05)
[2021-06-15] MEDS: VANCOMYCIN 2 GRAM/400 ML BAG 2 GM/400 ML PIGGYBACK IV SCH ×2 (13:33→20:56)
[2021-06-15] MEDS: MORPHINE SULFATE 4 MG INJ IV PRN ×2 (16:55→21:50)
[2021-06-16] MEDS: Zofran 4 MG/2 ML VIAL IV PRN ×2 (00:46→05:05)
[2021-06-16] MEDS: MORPHINE SULFATE 4 MG INJ IV PRN ×4 (02:05→14:21)
[2021-06-16] MEDS: VANCOMYCIN 2 GRAM/400 ML BAG 2 GM/400 ML PIGGYBACK IV SCH (05:05)
[2021-06-16] MEDS ORDERED: MORPHINE SULFATE 4 MG INJ ONE (06:18)
[2021-06-16] MEDS: TYLENOL EXTRA STRENGTH 500 MG PO PRN (06:21)
[2021-06-16 07:40] LABS: Basophil (Absolute #) 0.04 (0-0.4); Eosinophil % 4.8 % (0.00-5.0); Eosinophil (Absolute #) 0.77 (0-0.5); Hematocrit 37.4 % (42-50); Hemoglobin 12.8 gm/dl (12.5-18.0); Lymphocyte (Absolute #) 1.49 (1.0-4.6); Lymphocytes % 9.3 % (24.0-44.0); Mean Corpuscular Hemoglobin 29.4 pg (26-32); Mean Corpuscular Hgb Concent. 34.2 g/dl (32-36); Mean Platelet Volume 8.9 fl (7.5-11.0); Monocyte (Absolute #) 0.97 (0.0-1.3); Neutrophil % 79.7 % (36.0-66.0); Platelet Count 313 K/mm3 (150-450); Red Blood Count 4.35 M/mm3 (4.1-5.6); Red Cell Distribution Width 14.1 % (11.5-14.0); White Blood Count 16.1 K/mm3 (4.0-10.5)
[2021-06-16 07:48] LABS: ALBUMIN 3.1 g/dL (3.5-5.0); ALKALINE PHOSPHATASE 67 U/L (38-126); ANION GAP 11.7 MEQ/L (5-15); BLOOD UREA NITROGEN 10 mg/dL (9-20); CHLORIDE 97 mmol/L (98-107); Carbon Dioxide 25 mmol/L (22-30); Creatinine 1 1.05 mg/dL (0.66-1.25); EST GLOMERULAR FILTRATION RATE > 60.0 ML/MIN; Glucose 114 mg/dL (74-106); Potassium 3.2 mmol/L (3.5-5.1); SGOT/AST 62 U/L (17-59); SGPT/ALT 77 U/L (0-50); SODIUM 131 mmol/L (137-145); Total Protein 6.2 g/dL (6.3-8.2)
[2021-06-16 09:09] LABS: BAND 3 % (0.0-2.0); Basophil 1 % (0.0-1.0); Eosinophil 7 % (0.00-3.0); Lymphocytes 7 % (24-44); Monocyte 2 % (0.0-12.0); Neutrophils 80 % (36.-66.); Total Cells Counted 100
[2021-06-16 09:15] LABS: Microcytosis 1+; Platelet Estimate NORMAL (NORMAL)
[2021-06-16] MEDS: ENOXAPARIN SODIUM SQ SCH (09:22)
[2021-06-16] MEDS: solu-MEDROL 125 MG, Sterile H2O 10 ml 2 ML IV SCH ×8 (09:23→23:29)
[2021-06-16] MEDS: PROTONIX 40 MG IV IV SCH (09:23)
[2021-06-16] MEDS: BENADRYL 25 MG CAPSULE PO PRN ×4 (09:24→23:29)
[2021-06-16] MEDS: Klor Con 10 MEQ PO SCH ×2 (09:24→20:37)
[2021-06-16] MEDS: Sodium Chloride 0.9% 1000 ML 1,000 ML IV SCH ×2 (09:47→19:49)
[2021-06-16] MEDS: Nicoderm CQ 21 MG TOP SCH (12:34)
[2021-06-16] MEDS ORDERED: TROUGH DRUG LEVELS IJ ONE (13:30)
[2021-06-16] MEDS: CEFAZOLIN 2 GM-D5W BAG** 2 GM/50 ML ML IV SCH ×2 (14:16→20:36)
[2021-06-16] MEDS: HUMALOG SQ PRN ×2 (18:41→21:16)
[2021-06-16] MEDS: Cozaar 50 MG PO SCH (20:36)
[2021-06-16] MEDS: Glucophage 500 MG PO SCH (20:37)
[2021-06-16] MEDS: hydroDIURIL 25 MG PO SCH (20:37)
[2021-06-16] MEDS: Paxil 20 MG PO SCH (20:37)
[2021-06-16] MEDS: Zocor 10MG PO SCH (20:37)
[2021-06-17] MEDS: CEFAZOLIN 2 GM-D5W BAG** 2 GM/50 ML ML IV SCH ×3 (05:49→22:45)
[2021-06-17] MEDS: solu-MEDROL 125 MG, Sterile H2O 10 ml 2 ML IV SCH ×6 (05:49→17:37)
[2021-06-17 05:51] LABS: Hematocrit 37.8 % (42-50); Hemoglobin 13.1 gm/dl (12.5-18.0); Mean Cell Volume 84.9 fl (78-100); Mean Corpuscular Hemoglobin 29.4 pg (26-32); Mean Corpuscular Hgb Concent. 34.7 g/dl (32-36); Mean Platelet Volume 9.2 fl (7.5-11.0); Platelet Count 333 K/mm3 (150-450); Red Blood Count 4.45 M/mm3 (4.1-5.6); Red Cell Distribution Width 14.1 % (11.5-14.0)
[2021-06-17] MEDS: Sodium Chloride 0.9% 1000 ML 1,000 ML IV SCH ×2 (05:55→08:16)
[2021-06-17 05:59] LABS: White Blood Count 28.4 K/mm3 (4.0-10.5)
[2021-06-17 06:17] LABS: ALBUMIN 3.4 g/dL (3.5-5.0); ALKALINE PHOSPHATASE 76 U/L (38-126); ANION GAP 13.2 MEQ/L (5-15); BLOOD UREA NITROGEN 11 mg/dL (9-20); CHLORIDE 99 mmol/L (98-107); Calcium 8.7 mg/dL (8.4-10.2); Carbon Dioxide 24 mmol/L (22-30); Creatinine 1 0.78 mg/dL (0.66-1.25); EST GLOMERULAR FILTRATION RATE > 60.0 ML/MIN; Glucose 233 mg/dL (74-106); Potassium 3.3 mmol/L (3.5-5.1); SGOT/AST 45 U/L (17-59); SGPT/ALT 65 U/L (0-50); SODIUM 132 mmol/L (137-145); Total Protein 6.5 g/dL (6.3-8.2)
[2021-06-17] MEDS: BENADRYL 25 MG CAPSULE PO PRN ×2 (07:35→13:30)
[2021-06-17] MEDS ORDERED: DULCOLAX 5 MG PO PRN (08:41)
[2021-06-17] MEDS: ENOXAPARIN SODIUM SQ SCH (08:52)
[2021-06-17] MEDS: PROTONIX 40 MG IV IV SCH (08:52)
[2021-06-17] MEDS: Klor Con 10 MEQ PO SCH ×2 (08:52→22:44)
[2021-06-17] MEDS: HUMALOG SQ PRN ×2 (08:53→12:18)
[2021-06-17] MEDS: Nicoderm CQ 21 MG TOP SCH (11:10)
[2021-06-17] MEDS ORDERED: CORTISONE 1% CREAM TP PRN (13:20)
[2021-06-17] MEDS ORDERED: TORAdol 30 mg Injection IV PRN (13:22)
[2021-06-17] MEDS: Nystatin SUSPENSION 60 ML PO SCH ×3 (13:30→22:45)
[2021-06-17] MEDS: Cozaar 50 MG PO SCH (22:44)
[2021-06-17] MEDS: Glucophage 500 MG PO SCH (22:44)
[2021-06-17] MEDS: hydroDIURIL 25 MG PO SCH (22:44)
[2021-06-17] MEDS: Zocor 10MG PO SCH (22:45)
[2021-06-17] MEDS: Paxil 20 MG PO SCH (22:45)
[2021-06-18] MEDS: solu-MEDROL 125 MG, Sterile H2O 10 ml 2 ML IV SCH ×4 (00:35→05:56)
[2021-06-18 05:22] LABS: Hematocrit 36.2 % (42-50); Hemoglobin 12.4 gm/dl (12.5-18.0); Mean Cell Volume 86.2 fl (78-100); Mean Corpuscular Hemoglobin 29.5 pg (26-32); Mean Corpuscular Hgb Concent. 34.3 g/dl (32-36); Mean Platelet Volume 9.8 fl (7.5-11.0); Platelet Count 376 K/mm3 (150-450); Red Cell Distribution Width 14.3 % (11.5-14.0)
[2021-06-18 05:29] LABS: White Blood Count 34.6 K/mm3 (4.0-10.5)
[2021-06-18 05:35] LABS: ALBUMIN 3.2 g/dL (3.5-5.0); ALKALINE PHOSPHATASE 72 U/L (38-126); ANION GAP 15.2 MEQ/L (5-15); BLOOD UREA NITROGEN 25 mg/dL (9-20); CHLORIDE 100 mmol/L (98-107); Calcium 8.7 mg/dL (8.4-10.2); Carbon Dioxide 22 mmol/L (22-30); Creatinine 1 0.86 mg/dL (0.66-1.25); EST GLOMERULAR FILTRATION RATE > 60.0 ML/MIN; Glucose 151 mg/dL (74-106); Potassium 3.5 mmol/L (3.5-5.1); SGOT/AST 40 U/L (17-59); SGPT/ALT 54 U/L (0-50); SODIUM 134 mmol/L (137-145); Total Protein 6.5 g/dL (6.3-8.2)
[2021-06-18] MEDS: CEFAZOLIN 2 GM-D5W BAG** 2 GM/50 ML ML IV SCH (05:57)
[2021-06-18 07:00] LABS: BAND 12 % (0.0-2.0); Lymphocytes 8 % (24-44); Monocyte 6 % (0.0-12.0); Neutrophils 74 % (36.-66.); Total Cells Counted 100
[2021-06-18 07:01] LABS: Hypochromia 1+; Platelet Estimate NORMAL (NORMAL)
[2021-06-18 07:02] LABS: ANISOCYTOSIS 1+
[2021-06-18 07:16] VITALS: BP 131/71; PULSE 68; O2SAT 93
[2021-06-18] MEDS: ENOXAPARIN SODIUM SQ SCH (09:55)
[2021-06-18] MEDS: Klor Con 10 MEQ PO SCH (09:56)
[2021-06-18] MEDS: PROTONIX 40 MG IV IV SCH (09:56)
[2021-06-18] MEDS: Nystatin SUSPENSION 60 ML PO SCH (09:56)
--- NOTE | 2021-06-18 11:29 | DS ---
DISCHARGE DIAGNOSIS: BROWN RECLUSE SPIDER BITE OF THE LEFT ARM. HISTORY: The patient is a 36-year-old white male patient who had been awoken by pain on his arm. He looked down and saw a spider and smashed it. He reports it had the appearance of a fiddle on his back and was pretty sure it was a brown recluse spider. The patient was seen in the emergency room and admitted to the hospital and placed on IV Vancomycin. HOSPITAL COURSE: The patient after starting IV antibiotics developed a rash under his arm pit and between his legs and pretty much on his thorax as well. We thought this might be secondary to the vancomycin. The arm continued to get worse despite the vancomycin as well and with this being more than likely envenomation, it does have macerated area near the antecubital fossa and redness extends out with that. We did myra it with a purple maker to try to keep an eye on what was going on with the extension of the cellulitis which is now felt to be due to chemical envenomation. The patient was started on IV steroid medication of Solu-Medrol 1.5 IV every six hours. By day two, the redness the redness was much less deep in color. The pain was much less. The warmth was much less deep in color. The pain was much less. The warmth was less as well. There was roughly a quarter-size area that appears to be macerated and may well develop into sloughing of the skin in that area. The patient also has diabetes and was followed with sliding scale coverage due to increase in the sugars due to his steroids. The patient was also noted to have significant increase in his white blood cell count which we also felt was secondary to steroid medications. The patient was feeling so much better by 06/18/2021, we felt that he was ready for discharge home at this time. DISCHARGE PLAN: The patient will be discharged home on prednisone at 60 mg a day for five days. We will see him in the office on day five. He also will be on Keflex. When we stopped the vancomycin he will be started on cefazolin every 8 hours, will place him on Keflex 500 mg every six hours. He was also given Toradol for pain. We will now switch him to oral at 10 mg every six hours PRN for pain. He can also use Tylenol as well. He complained of what appeared to be thrush developing. He was given Diflucan 200 mg daily for this for seven days and some mupirocin to place on the wound itself and inside the nares as he was beginning to complain of irritation in that area as well. Again, the patient will be followed up in the office in one week. He was also asked to increase his Metformin from 500 mg daily to 500 mg twice a day.
== END 2021-06-18 10:20 | disposition home or self-care (01) | DRG 918 ==
LOC: ED 11:26 → MED SURG 16:11 → OBSVTOIN 06-16 07:38
PROVIDERS: ADMIT General Practice; ATTEND Family Medicine
DX: T63.331A Toxic effect of venom of brown recluse spider, accidental (unintentional), initial encounter (principal); L03.114 Cellulitis of left upper limb; E11.9 Type 2 diabetes mellitus without complications; E78.00 Pure hypercholesterolemia, unspecified; I10 Essential (primary) hypertension; E87.6 Hypokalemia; Z79.899 Other long term (current) drug therapy; Z20.828 Contact with and (suspected) exposure to other viral communicable diseases
CPT/HCPCS: 0241U; 36000; 36415; 80053; 82947; 83605; 85025; 85027; 87040; 93268; 96365; 96374; 99285; G0378; J0690; J1650; J1817; J1885; J2270; J2405; J2930; J3480; A9270-GY; J3370

== ENCOUNTER 2021-06-23 11:24 | Observation (INO) | payer BC ==
--- NOTE | 2021-06-23 12:45 | XRAY ---
Indication: Low oxygenation. Pulmonary embolus. Multiple contiguous axial images obtained through the chest using 100 cc Isovue 370 contrast and PE protocol. Comparison: None There is adequate opacification of the pulmonary arteries. However patient's body habitus limits evaluation for distal pulmonary emboli. No obvious pulmonary embolus. Heart not enlarged. Aorta is normal in course and caliber. No pathologic mediastinal/hilar lymphadenopathy. Lungs demonstrates moderate diffuse bilateral patchy groundglass airspace disease with small bibasilar effusions and minimal bibasilar subsegmental atelectasis. Bony thorax intact with mild/moderate degenerative changes throughout the spine. Limited upper abdomen demonstrates diffuse fatty liver. Impression: 1. Pulmonary embolus evaluation limited due to patient's large body habitus. No obvious pulmonary embolus. 2. Diffuse bilateral groundglass airspace disease with small bilateral effusions. 3. Multilevel degenerative spondylosis and fatty liver.
[2021-06-23 14:09] LABS: Hematocrit 37.9 % (42-50); Hemoglobin 12.8 gm/dl (12.5-18.0); Mean Cell Volume 87.9 fl (78-100); Mean Corpuscular Hemoglobin 29.7 pg (26-32); Mean Corpuscular Hgb Concent. 33.8 g/dl (32-36); Mean Platelet Volume 9.2 fl (7.5-11.0); Platelet Count 477 K/mm3 (150-450); Red Blood Count 4.31 M/mm3 (4.1-5.6); Red Cell Distribution Width 14.8 % (11.5-14.0); White Blood Count 23.7 K/mm3 (4.0-10.5)
[2021-06-23] MEDS ORDERED: Klor Con 10 MEQ PO SCH (14:45)
[2021-06-23] MEDS ORDERED: Sodium Chloride 0.9% 10 ML FLUSH Syringe IV PRN (14:45)
[2021-06-23] MEDS ORDERED: Lasix 40 MG/4 ML IV SCH (14:45)
[2021-06-23 14:54] LABS: INFLUENZA A NEGATIVE (NEGATIVE); INFLUENZA B NEGATIVE (NEGATIVE); RESPIRATORY SYNCTIAL VIRUS NEGATIVE (Negative); SARS-CoV-2 Xpert Express NEGATIVE (NEGATIVE)
[2021-06-23 14:58] LABS: ALBUMIN 3.4 g/dL (3.5-5.0); ALKALINE PHOSPHATASE 71 U/L (38-126); ANION GAP 12.3 MEQ/L (5-15); BLOOD UREA NITROGEN 25 mg/dL (9-20); CHLORIDE 103 mmol/L (98-107); Calcium 8.8 mg/dL (8.4-10.2); Carbon Dioxide 24 mmol/L (22-30); Creatinine 1 1.06 mg/dL (0.66-1.25); EST GLOMERULAR FILTRATION RATE > 60.0 ML/MIN; Glucose 136 mg/dL (74-106); NT PRO BNP 994 pg/mL (0-450); Potassium 5.1 mmol/L (3.5-5.1); SGOT/AST 36 U/L (17-59); SGPT/ALT 75 U/L (0-50); SODIUM 134 mmol/L (137-145); Total Protein 6.7 g/dL (6.3-8.2)
[2021-06-23 17:16] LABS: BAND 1 % (0.0-2.0); Lymphocytes 7 % (24-44); Metamyelocyte 3 %; Monocyte 4 % (0.0-12.0); Myelocyte 1 %; Neutrophils 84 % (36.-66.); Platelet Estimate INCREASED (NORMAL); Total Cells Counted 100
[2021-06-23 17:17] LABS: ANISOCYTOSIS 1+; Microcytosis 1+
[2021-06-23] MEDS: Paxil 20 MG PO SCH (17:28)
[2021-06-23] MEDS: Cozaar 50 MG PO SCH (17:28)
[2021-06-23] MEDS ORDERED: Glucophage 500 MG PO SCH (18:00)
[2021-06-23] MEDS: BENADRYL 25 MG CAPSULE PO PRN (21:36)
[2021-06-23] MEDS: Sodium Chloride 0.9% 10 ML FLUSH Syringe IV SCH (22:24)
[2021-06-24] MEDS: Sodium Chloride 0.9% 10 ML FLUSH Syringe IV SCH ×3 (05:03→22:11)
--- NOTE | 2021-06-24 08:54 | HP ---
CHIEF COMPLAINT: Shortness of breath. HISTORY OF PRESENT ILLNESS: The patient is a 36-year-old white male patient who was seen in my office for follow up for brown recluse spider bite on his left forearm. The patient had complained of being very short of breath with ambulation. We checked him in our office and found his O2 saturations to be quite low. The initial report that he was in the 60's. With oxygen he was able to get up to the mid 90's but without oxygen at rest he was running 87 to 89% at rest. The patient did have a significant hospitalization for brown recluse spider bite which did also include generalized rash which he thought initially to be due to his Vancomycin he was receiving initially from the emergency room. This had been discontinued and the patient placed on IV steroids. Within a couple of days the arm looked much better. His rash now appears to be peeling on his arms indicative of scalded skin-type syndrome but we feel that this secondary to envenomation. The patient had a CT scan to rule out pulmonary embolism and this was negative. It did show a ground glass type appearance and a little bit of effusion. The patient did have labs with elevation in his ProBNP level therefore we elected to get echocardiogram but they said that they could not do it until the next day on 06/24/2021. We also consulted Dr. Rodney Moreno for further evaluation and management. PHYSICAL EXAMINATION: The patient's vital signs otherwise currently showed his temperature 97.6F, pulse 44, respiratory rate 20, blood pressure 142/70. O2 saturation on 3 liters is 97%. HEENT: Normocephalic, atraumatic. Pupils equal round reactive to light. Extraocular movements intact. Oropharynx is pink and moist. NECK: Supple without lymphadenopathy, thyromegaly or JVD. CHEST: Essentially clear. HEART: Regular rate and rhythm without murmurs, rubs or gallops. ABDOMEN: Soft. No palpable masses. EXTREMITIES: Without significant cyanosis, clubbing or edema. He is showing blistering over the forearm and the rash otherwise on the skin as noted previously is resolving somewhat but his skin is peeling over both shoulders. ASSESSMENT: A patient with myocarditis secondary to his brown recluse spider bite and now has heart failure. He has been given IV Lasix and consulted horticultural agent and schedule for an echocardiogram. He has also been given Lovenox for prevention of deep vein thrombosis and pulmonary embolism. His activity level has been much reduced. He is also placed on telemetry for evaluation and close monitoring.
[2021-06-24 09:25] LABS: Hematocrit 41.9 % (42-50); Hemoglobin 13.8 gm/dl (12.5-18.0); Mean Cell Volume 90.1 fl (78-100); Mean Corpuscular Hemoglobin 29.7 pg (26-32); Mean Corpuscular Hgb Concent. 32.9 g/dl (32-36); Mean Platelet Volume 8.9 fl (7.5-11.0); Platelet Count 426 K/mm3 (150-450); Red Blood Count 4.65 M/mm3 (4.1-5.6); Red Cell Distribution Width 15.3 % (11.5-14.0); White Blood Count 21.2 K/mm3 (4.0-10.5)
[2021-06-24 09:48] LABS: ALBUMIN 3.1 g/dL (3.5-5.0); ALKALINE PHOSPHATASE 57 U/L (38-126); BLOOD UREA NITROGEN 24 mg/dL (9-20); CHLORIDE 103 mmol/L (98-107); Calcium 8.3 mg/dL (8.4-10.2); Carbon Dioxide 26 mmol/L (22-30); Creatinine 1 0.88 mg/dL (0.66-1.25); EST GLOMERULAR FILTRATION RATE > 60.0 ML/MIN; Glucose 86 mg/dL (74-106); Potassium 4.4 mmol/L (3.5-5.1); SGOT/AST 69 U/L (17-59); SGPT/ALT 61 U/L (0-50); SODIUM 136 mmol/L (137-145); Total Protein 6.3 g/dL (6.3-8.2)
[2021-06-24 09:56] LABS: NT PRO BNP 668 pg/mL (0-450); TROPONIN < 0.012 ng/mL (0.000-0.034)
[2021-06-24] MEDS ORDERED: NON-FORMULARY ITEM (Potassium Chloride [Potassium Chloride] 8 MEQ Tablet.Er) PO SCH (10:00)
[2021-06-24] MEDS ORDERED: Lasix 40 MG/4 ML IV ONE ×2 (10:00→13:05)
[2021-06-24] MEDS ORDERED: Lasix 40 MG PO SCH (10:00)
[2021-06-24] MEDS ORDERED: NON-FORMULARY ITEM (Losartan Potassium [Losartan Potassium] 100 MG Tablet) PO SCH (10:00)
[2021-06-24] MEDS: Klor Con 10 MEQ PO SCH (10:06)
[2021-06-24] MEDS: Paxil 20 MG PO SCH (10:06)
[2021-06-24] MEDS: ENOXAPARIN SODIUM SQ SCH (10:07)
[2021-06-24] MEDS: Cozaar 50 MG PO SCH (10:07)
[2021-06-24] MEDS: NAPROSYN 375 MG PO SCH ×2 (10:56→21:07)
[2021-06-24] MEDS ORDERED: BENADRYL 50 MG/ML IV ONE (13:04)
[2021-06-24] MEDS: BENADRYL 25 MG CAPSULE PO PRN (19:48)
[2021-06-25 05:42] LABS: Hematocrit 40.4 % (42-50); Hemoglobin 13.2 gm/dl (12.5-18.0); Mean Corpuscular Hemoglobin 29.7 pg (26-32); Mean Corpuscular Hgb Concent. 32.7 g/dl (32-36); Mean Platelet Volume 8.9 fl (7.5-11.0); Platelet Count 382 K/mm3 (150-450); Red Blood Count 4.44 M/mm3 (4.1-5.6); Red Cell Distribution Width 15.2 % (11.5-14.0); White Blood Count 19.4 K/mm3 (4.0-10.5)
[2021-06-25] MEDS: Sodium Chloride 0.9% 10 ML FLUSH Syringe IV SCH (06:17)
[2021-06-25 06:44] LABS: ANION GAP 12.1 MEQ/L (5-15); BLOOD UREA NITROGEN 24 mg/dL (9-20); CHLORIDE 100 mmol/L (98-107); CK-Creatinine Phosphokinase 37 U/L (55-170); Carbon Dioxide 27 mmol/L (22-30); Creatinine 1 0.94 mg/dL (0.66-1.25); EST GLOMERULAR FILTRATION RATE > 60.0 ML/MIN; Glucose 92 mg/dL (74-106); Potassium 4.4 mmol/L (3.5-5.1); SODIUM 134 mmol/L (137-145)
[2021-06-25 07:21] LABS: Calcium 8.2 mg/dL (8.4-10.2)
--- NOTE | 2021-06-25 09:35 | ECHO ---
DATE OF PROCEDURE: 06/24/2021 PROCEDURE: Complete two-dimensional echocardiogram with color Doppler and Spectral analysis. INDICATION: Congestive heart failure. DESCRIPTION OF FINDINGS: This is a technically difficult study due to the patient's body habitus. The left ventricle is normal size with normal systolic function and ejection fraction of 60 to 65%. The right ventricle appears mildly dilated with normal systolic function. The left atrium is normal size. The right atrium is mildly dilated. Inferior vena cava is not well visualized. The aortic valve is not well visualized. There is no aortic stenosis. There is no aortic regurgitation. The mitral valve is not well visualized. There is no significant mitral regurgitation. The tricuspid valve leaflets are not well visualized. There is no significant tricuspid regurgitation. The pulmonic valve is not well visualized. The aortic root is not well visualized. There is no pericardial effusion. IMPRESSION: 1) TECHNICALLY DIFFICULT STUDY DUE TO PATIENT BODY HABITUS WITH LIMITED IMAGING. 2) LEFT VENTRICLE IS NORMAL SIZE WITH NORMAL SYSTOLIC FUNCTION. EJECTION FRACTION IS 60 TO 65%. 3) RIGHT VENTRICLE APPEARS MILDLY DILATED WITH NORMAL SYSTOLIC FUNCTION. 4) CARDIAC VALVES ARE NOT WELL VISUALIZED HOWEVER THERE DOES NOT APPEAR TO BE ANY SIGNFICANT REGURGITATION OR STENOSIS BASED ON DOPPLER ASSESSMENT. 5) NO PERICARDIAL EFFUSION.
[2021-06-25] MEDS ORDERED: Glucophage 500 MG PO SCH (10:00)
[2021-06-25] MEDS ORDERED: Lasix 40 MG PO SCH (10:00)
[2021-06-25] MEDS: Klor Con 10 MEQ PO SCH (10:04)
[2021-06-25] MEDS: Cozaar 50 MG PO SCH (10:05)
[2021-06-25] MEDS: NAPROSYN 375 MG PO SCH (10:05)
[2021-06-25] MEDS: ENOXAPARIN SODIUM SQ SCH (10:05)
[2021-06-25] MEDS: Paxil 20 MG PO SCH (10:05)
--- NOTE | 2021-06-25 10:20 | CONS ---
CONSULT DATE: 06/24/2021 REASON FOR CONSULT: Congestive heart failure, elevated BNP. HISTORY: Adin Baker is a 36-year-old morbidly obese gentleman with history of hypertension who had a suspected brown recluse spider bite on his left forearm last week. He was initially treated with steroids. However, he developed worsening necrotic lesion on his left forearm at the site of the bite as well as diffuse erythematous pruritic rash. He presented yesterday and appeared to be volume overloaded with an elevated BNP. He has completed a course of steroids and is still receiving oral Benadryl and continued to have a pruritic rash. However, he denies any chest pain or shortness of breath at rest. He has been receiving IV diuretics with good urine output. Currently, his main complaint is itching, pruritic rash and denies any orthopnea, paroxysmal nocturnal dyspnea, dizziness or syncope. REVIEW OF SYSTEMS: Fourteen system review performed. Pertinent positives noted in H&P otherwise negative. PAST MEDICAL HISTORY: Hypertension, diabetes, morbid obesity, obstructive sleep apnea on CPAP. FAMILY HISTORY: No premature coronary artery disease. ALLERGIES: LISINOPRIL (COUGH). VANCOMYCIN (RASH). MEDICATIONS: Current medications reviewed, see EMR for full details. PHYSICAL EXAMINATION: Vital signs reviewed and he remains hemodynamically stable. GENERAL: He is morbidly obese. He is pleasant, conversant and in no acute distress. HEENT: Eyes: Nonicteric sclera, conjunctiva normal. ENT: Grossly intact. No nasal discharge. NECK: No carotid bruits. RESPIRATORY: Good effort, clear to auscultation bilaterally. No accessory muscle use. CVS: Regular rate and rhythm. No murmurs, rubs or gallops. : Difficult to assess due to body habitus. EXTREMITIES: There is 1+ bilateral lower extremity pitting edema. GI: Abdomen soft, nontender, nondistended. No rebound or guarding. MUSCULOSKELETAL: Normal muscle bulk and tone. No clubbing or cyanosis. SKIN: There is a necrotic circular lesion on the left forearm that is approximately 2 to 3 cm in diameter. The patient has a diffuse erythematous raised pruritic rash. PSYSCH: Alert and oriented x4. Appropriate insight and judgement. Normal mood and affect. NEUROLOGICAL: Grossly nonfocal. LAB DATA AND TESTS: Laboratory data reviewed. BNP is in the 900's. White blood cell count is elevated. Urine function is stable. EKG personally reviewed demonstrated sinus bradycardia with sinus arrhythmia with heart rate in the 40's. IMPRESSION: 1) Acute on chronic diastolic congestive heart failure possibly exacerbated by hypersensitivity reaction to brown recluse spider bite. 2) Hypersensitivity reaction to brown recluse spider bite. 3) Hypertension which is well controlled. 4) Obstructive sleep apnea on CPAP. RECOMMENDATIONS: At this time would continue diuresis with IV Lasix. I suspect that some of the patient's worsening volume overload may be associated with recent steroid use. Cardiac enzymes have been unremarkable and ejection fraction on echo is normal thus a significant myocarditis associated with insect bite is unlikely. EKG also does not demonstrate any evidence of pericarditis. Would continue to treat for hypersensitivity reaction and if additional ongoing steroids are necessary would just monitor volume status carefully which is somewhat to do due to the patient's severe morbid obesity. I would give one additional dose of IV Lasix today and transition to oral Lasix tomorrow. In condition, could consider addition of an SGLT2 inhibitor such as empagliflozin or dapagliflozin for ongoing management of heart failure with preserved ejection fraction, this would also benefit his diabetes. Will continue to monitor renal function and electrolytes daily while hospitalized and I will plan to see him in the office in the coming week after discharge.
[2021-06-25 11:45] VITALS: BP 139/82; PULSE 57; O2SAT 96
--- NOTE | 2021-06-25 11:46 | DS ---
DISCHARGE DIAGNOSES: 1) HYPOXIA. 2) HEART FAILURE. 3) BROWN RECLUSE SPIDER ENVENOMATION. HISTORY: The patient is a 36-year-old white male patient who was in the hospital for what was felt to be a brown recluse spider bite as noted by the patient who did note the spider. He did smash it. He said it did have saddleback. The patient was treated initially for cellulitis in the left forearm with vancomycin at first. He developed a rash which we felt might be secondary to vancomycin but as it turns out we feel now that is more likely to be the spider venom. The patient had noted some significant shortness of breath and checked his saturations were in the 60's upon ambulation. The patient was admitted to the hospital for further evaluation and management. HOSPITAL COURSE: The patient had a consultation by Dr. Rodney Moreno from cardiology. Echocardiogram preliminary report showed the patient to have reduced ejection fraction. The patient's BNP level was elevated. He was given Lasix IV. He lost 31 pounds over a couple of days with the Lasix. The patient is now much better. He is still on oxygen but breathing much better and his O2 saturations on 2 liters are currently running between 95-98%. The patient will be discharged home now on supplemental oxygen, Lasix at 40 mg daily and potassium at 8 mEq a day. He will be seen also by Dr. Petersen in infectious disease for the possibility of developing cellulitis in the left forearm. We expect it to develop a nasty eschar which may end up being full thickness and we wish to be ahead of this with the possible need for further antibiotic treatment for that. The patient otherwise will be discharged home to follow up in my office in five days. He will also see Dr. Rodney Moreno in follow up as well. We will arrange for an appointment for him to see Dr. Rodney Moreno. The patient's home medications other than that listed above: He is usually Diflucan occasionally for what is felt to be yeast infections which he had previously. He is on Metformin 500 mg twice a day, naproxen 375 mg twice a day as needed for pain, paroxetine 20 mg a day. He takes Benadryl on an as needed basis for the itching.
== END 2021-06-25 12:18 | disposition home or self-care (01) ==
LOC: RAD 11:24 → MED SURG 14:07
PROVIDERS: ADMIT Family Medicine; ATTEND Family Medicine
DX: R09.02 Hypoxemia (principal); I11.0 Hypertensive heart disease with heart failure; I50.9 Heart failure, unspecified; G47.33 Obstructive sleep apnea (adult) (pediatric); T78.49XD Other allergy, subsequent encounter; W57.XXXD Bitten or stung by nonvenomous insect and other nonvenomous arthropods, subsequent encounter; Z79.899 Other long term (current) drug therapy; Z20.828 Contact with and (suspected) exposure to other viral communicable diseases
CPT/HCPCS: 0241U; 36415; 71260; 80048; 80053; 82550; 82947; 83880; 84145; 84484; 85025; 85027; 93005; 93306; 94760; 94762; 93268; J1200; J1650; J1940; A9270-GY; G0378